=== PATIENT | male | born 2000 | race Caucasian/White ===

== ENCOUNTER 2022-09-26 09:47 | Emergency (ER) | payer MEDICAID, OTHER ==
[~2022-09-26] VITALS: Ht 162.6 cm; Wt 61.2 kg
--- NOTE | 2022-09-26 10:15 | NUR ---
c/o chest tightness on the way to work
--- NOTE | 2022-09-26 10:52 | NUR ---
PT IN BED 12 CONNECTED TO BEDSIDE MONITOR O2, BP, EKG DONE. BREATHING IS EVEN AND UNLABORED. DENIES PAIN STATES IT FEELS MORE TTIGHT AND UNCOMFORABLE RATHER THAN PAINFUL. AYSMPTOMATIC BRADYCARDIA NOTED BP 125/83 98%
[2022-09-26 12:07] VITALS: BP 124/81
== END 2022-09-26 11:48 | disposition home or self-care (01) ==
LOC: ER 09:54
DX: R07.89 Other chest pain (principal)
CPT/HCPCS: 71045-TC

== ENCOUNTER 2023-03-24 10:45 | Emergency (ER) | payer OTHER ==
[~2023-03-24] VITALS: Ht 165.1 cm; Wt 59.4 kg
[2023-03-24 10:55] VITALS: BP 121/62; TEMP 98.5; O2SAT 98
[2023-03-24] MEDS ORDERED: ERYT3.5O9 LEFTEYE (11:02)
== END 2023-03-24 11:18 | disposition home or self-care (01) ==
LOC: ER 10:50
DX: H00.014 Hordeolum externum left upper eyelid (principal); Z60.2 Problems related to living alone

== ENCOUNTER 2023-09-04 07:23 | Emergency (ER) | payer OTHER ==
[~2023-09-04] VITALS: Ht 162.6 cm; Wt 59.0 kg
[~2023-09-04 07:23] MED LIST: ERYT3.5O9 LEFTEYE
[2023-09-04 08:43] LABS: BASOPHILS # (AUTO) 0.1 K/uL (0.0-0.2); EOSINOPHILS # (AUTO) 0.2 K/uL (0.0-0.7); EOSINOPHILS % (AUTO) 2.4 % (0.0-6.0); HEMATOCRIT 46 % (39-51); LYMPHOCYTES # (AUTO) 3.5 K/uL (0.8-4.8); LYMPHOCYTES % (AUTO) 53.6 % (20.0-44.0); MEAN CORPUSCULAR HEMOGLOBIN 33 PG (26.0-33.0); MEAN CORPUSCULAR HGB CONC 35 g/dl (31.0-36.0); MEAN CORPUSCULAR VOLUME 94 fL (80-96); MONOCYTES # (AUTO) 0.5 K/uL (0.1-1.30); MONOCYTES % (AUTO) 8.1 % (2.0-12.0); NEUTROPHILS # (AUTO) 2.3 K/uL (1.8-8.9); NEUTROPHILS % (AUTO) 34.9 % (43.0-81.0); PLATELET COUNT (AUTO) 210 K/uL (150-450); RED BLOOD CELL COUNT(AUTO) 4.91 MIL/uL (4.5-6.0); RED CELL DISTRIBUTION WIDTH 12.9 % (11.5-15.0); WHITE BLOOD COUNT (AUTO) 6.6 K/uL (4.3-11.0)
[2023-09-04 08:58] LABS: CALCIUM, SERUM 9.4 mg/dL (8.5-10.1); CARBON DIOXIDE 29 mmol/L (21-32); CHLORIDE 100 mmol/L (98-107); CREATININE 0.8 mg/dL (0.6-1.3); GLUCOSE 88 mg/dL (74-106); POTASSIUM 4.2 mmol/L (3.5-5.1); SODIUM SERUM 139 mmol/L (136-145); UREA NITROGEN, BLOOD 9 mg/dL (7-18)
[2023-09-04 11:41] VITALS: BP 118/71; TEMP 98.1; O2SAT 98
== END 2023-09-04 11:42 | disposition home or self-care (01) ==
LOC: ER 07:27
DX: R07.89 Other chest pain (principal); R79.89 Other specified abnormal findings of blood chemistry; F41.9 Anxiety disorder, unspecified; Z60.2 Problems related to living alone
CPT/HCPCS: 36415; 71045-TC; 80048-TC; 84439-TC; 84443-TC; 84484-TC; 85025-TC

== ENCOUNTER 2024-06-25 10:51 | Emergency (ER) | payer SELFPAY ==
[~2024-06-25] VITALS: Ht 165.1 cm; Wt 59.0 kg
[2024-06-25 10:59] VITALS: BP 121/81; TEMP 97.8; O2SAT 100
[2024-06-25] MEDS ORDERED: AMOX-430 PO (11:16)
== END 2024-06-25 11:22 | disposition home or self-care (01) ==
LOC: ER 10:56
DX: R19.7 Diarrhea, unspecified (principal); F41.9 Anxiety disorder, unspecified; Z60.2 Problems related to living alone